=== PATIENT | female | born 1945 | race Hispanic/Latino ===

== ENCOUNTER 2022-01-26 16:33 | Inpatient (IN) | payer OTHER ==
--- OUTSIDE RECORDS SUMMARY | 2022-01-26 16:36 | XMS REPORT | Continuity of Care Document ---
:1945 Author Organization [facility] t Address [address] [place] [address] Care Team Providers Name Role Phone Enzo Knight Primary Care Physician Unavailable ANENE Attending Clinician Unavailable Vaccine, Db Cbc Fam Attending Clinician Unavailable Anene TENANT RELATIONS COORDINATOR Attending Clinician RADIOLOGY Attending Clinician Unavailable Radiology Attending Clinician Unavailable Doctor Unassigned, Name Attending Clinician Unavailable Pob, Lab Main Attending Clinician Unavailable Paige YEPEZ Attending Clinician PAIGE Attending Clinician Unavailable Payers Payer Name Policy Type Policy Number Effective Date Expiration Date S elo [employer] MEDICARE [id number] 2018 00:00:00 Problems This patient has no known problems. Allergies, Adverse Reactions, Alerts Allergy Allergy Status Severity Reaction(s) Onset Inactive Treating Comm ents Source Name Type Date Date Clinician NO KNOWN Drug Active Univers ALLERGIE Class ity of S [facility] Social History Social Habit Start Date Stop Date Quantity Comments Source Exposure to Not sure [facility] SARS-CoV-2 (event) Medica l Branch Sex Assigned At [birth year] [facility] 00:00:00 00:00:00 [facility] Smoking Status Start Date Stop Date Source Unknown if ever smoked [facility] Medications This patient has no known medications. Immunizations Ordered Filled Immunization Date Status Comments [facility] e Immunization Name Name SARS-COV-2 COVID-19 2021-08-23 Completed Unive rsity of PFIZER VACCINE 00:00:[address] [facility] SARS-COV-2 COVID-19 2020-12-15 Completed Unive rsity of PFIZER VACCINE 00:00:[address] [facility] SARS-COV-2 COVID-19 2020-11-24 Completed Unive rsity of PFIZER VACCINE 00:00:[address] [facility] Zoster Vaccine 2019-05-13 Completed [facility] 00:00:00 [facility] Procedures Procedure Date / Time Performing Clinician Source Performed SARS-COV-2 COVID-19 2021-08-23 16:22:52 Doctor Unassigned, No [facility] [place] VACCINE,0.3ML,IM Name [facility] (PFIZER) BI SCREENING 2020-05-07 20:05:00 Requisition, Paper [facility] TOMOSYNTHESIS BILATERAL [facility] ASSIGNMENT OF BENEFITS 2020-05-07 19:00:07 Doctor Unassigned, No [facility] Name [facility] XR CHEST 2 VW 2020-05-01 16:28:25 Rohan, [facility] Encounters Start End Encounter Admission Attending Care Care Encounter Source Date/Time Date/Time Type Type Clinicians Facility Department ID 2021-08-23 2021-08-23 Outpatient R PARAS [facility] [id number] Univers 10:00:00 10:30:47 ROSAURA [facility] 2021-08-23 2021-08-23 Imm/Inj Vaccine, Ang Db Cbc Fam [facility] [id number] Univers 10:08:36 10:18:36 Visit Rosaura Lemos [facility] [id number] ity [facility] [id number] Daniel as SUDHA?BLEA [id number] La jay MEZA [address] [place] [address] MEDICAL OFFICE BUILDING 2021-08-23 2021-08-23 Outpatient R [facility] [id number] Univers 10:00:00 10:00:00 [id number] ity of [facility] 2020-06-16 2020-06-16 Outpatient [facility] [id number] Univers 11:00:00 11:00:00 [id number] ity of [facility] 2020-06-16 2020-06-16 Outpatient R RADIOLOGY [facility] [id number] Univers 00:00:00 00:00:00 ity of [facility] 2020-05-07 2020-05-07 Hospital Radiology [facility] [id number] Univers 14:01:29 23:59:00 Encounter [place] [id number] [id number] [id number] [facility] [address] Branch 2020-05-07 2020-05-07 Outpatient [facility] [id number] Univers 14:20:00 14:20:00 [id number] ity of [facility] 2020-05-07 2020-05-07 Outpatient R RADIOLOGY [facility] [id number] Univers 00:00:00 00:00:00 ity of [facility] 2020-05-07 2020-05-07 Orders Doctor VASYL [id number] Univers 00:00:00 00:00:00 Only Unassigned, EDNA [id number] ity of [place] [facility] [id number] Daniel as [id number] [facility] 009 Branch 2020-05-01 2020-05-01 Hospital Radiology [facility] [id number] Univers 11:01:36 23:59:00 Encounter [place] [id number] [id number] [id number] [facility] 807 Branch 2020-05-01 2020-05-01 Outpatient R RADIOLOGY [facility] [id number] Univers 11:15:00 11:15:00 ity of [facility] 2020-05-01 2020-05-01 Application Development Specialist Nila, Dilshad Lab Main [facility] [id number] Univers 10:57:13 11:12:13 Visit Tracey Gibson [id number] [id number] [id number] La dical nal [address] Branch Building 2020-05-01 2020-05-01 Outpatient R TRACEY GIBSON [facility] [id number] Univers 11:00:00 11:00:00 ity of [facility] Results Test Description Test Time Test Comments Results Result Sourc e Comments BI SCREENING 2020-04-25 Examination:BI Universi ty of TOMOSYNTHESIS 3 SCREENING [place] [facility] BILATERAL 20:45:15 TOMOSYNTHESIS Branch BILATERAL History:Patient is 74 year old and is seen for: ?Encounter for screening mammogram for breast cancer. Computer-aided detection (CAD) utilized. Comparisons: 02/22/2018 BI SCREENING TOMOSYNTHESIS BILATERAL, 12/05/2016 BI SCREENING MAMMOGRAM BILATERAL, 11/23/2015 BI SCREENING MAMMOGRAM BILATERAL, 11/21/2014 BI SCREENING MAMMOGRAM BILATERAL, and 11/18/2013 BI SCREENING MAMMOGRAM BILATERAL Findings:The breasts are almost entirely fatty. RightThere is a 5 mm equal density, round mass with circumscribed margins seen in the upper outer quadrant of the right breast in the posterior depth, 8.3 cm from the nipple on the CC view. LeftThere are vascular calcifications seen in the left breast. There is no evidence of suspicious masses, calcifications, or other abnormal findings in the left breast. Impression:5 mm new lesion in upper outer RIGHT breast, appears benign. Ultrasound study requested. Recommendation:Fawn al mammographic follow-up - LeftUltrasound - Right BI-RADS Category: Left: 2 - BenignRight: 0 - Incomplete: Needs Additional Imaging EvaluationOverall: 0 - Incomplete: Needs Additional Imaging Evaluation XR CHEST 2 VW EXAM: XR CHEST 2 VW Un iversity of 7 HISTORY: [facility] [place] [facility] 16:30:08 hypertension, Branch malignant COMPARISON: None. FINDINGS: The heart is upper limit of normal in size with a prominent left ventricle.The lungs are clear. ? Kymb, Radiant Results Inft User - 05/01/2020 11:31 AM CDTEXAM: XR CHEST 2 VWHISTORY: Essential hypertension, malignant COMPARISON: None.FINDINGS:The heart is upper limit of normal in size with a prominent left ventricle.The lungs are clear.
[2022-01-26 17:18] LABS: Urine Blood 2+ (Negative); Urine Glucose 2+ (Negative); Urine Protein 1+ (Negative); Urine Specific Gravity 1.015 (1.005-1.030)
[2022-01-26] MEDS ORDERED: MORPHINE 2 MG/ML SYR ONE (17:31)
[2022-01-26] MEDS ORDERED: ONDANSETRON 4 MG/2 ML VIAL ONE ×2 (17:31→20:07)
[2022-01-26] MEDS ORDERED: NA CHLORIDE 0.9% 1,000 ML ONE ×2 (17:31→21:23)
[2022-01-26 17:36] LABS: Urine Bacteria 20-50 /HPF (<20)
[2022-01-26] MEDS ORDERED: CEFTRIAXONE 1000 MG/VIAL ONE (17:40)
[2022-01-26 17:42] LABS: Absolute Lymphocytes (CBC) 0.6 K/uL (0.7-4.9); Hematocrit 40.6 % (36.0-45.0); Lymphocytes % 3.3 % (15.3-44.8); MPV 8.3 fL (7.6-11.3); RBC Red Blood Cell Count 5.49 M/uL (3.86-4.86)
[2022-01-26 17:55] LABS: Albumin 3.8 g/dL (3.4-5.0); Bilirubin Total 0.6 mg/dL (0.2-1.0); Potassium 3.7 mmol/L (3.5-5.1); Protein, Total 8.2 g/dL (6.4-8.2)
[2022-01-26 18:28] LABS: Blood Morphology Comment NOT SEEN (NOT SEEN); Platelet Estimate ADEQ; White Blood Cell Scan OK (OK)
--- NOTE | 2022-01-26 19:04 | RAD REPORT ---
EXAM DESCRIPTION: RAD - Chest Single View - 01/26/2022 6:43 pm CLINICAL HISTORY: weakness COMPARISON: Chest Pa And Lat (2 Views) dated 10/23/2017; CHEST PA AND LAT 2 VIEW dated 10/05/2015 FINDINGS: Lines: None. Lungs: No evidence of edema or pneumonia. Pleural: No significant pleural effusions or pneumothorax. Cardiac: The heart size is within normal limits. Bones: No acute fractures. Other: IMPRESSION: No acute cardiopulmonary disease.
--- NOTE | 2022-01-26 19:08 | RAD REPORT ---
EXAM DESCRIPTION: CTStone Protocol - 01/26/2022 6:57 pm CLINICAL HISTORY: r/o renal stone COMPARISON: No comparisons TECHNIQUE: CT of the abdomen and pelvis was performed. All CT scans are performed using dose optimization technique as appropriate and may include automated exposure control or mA/KV adjustment according to patient size. FINDINGS: Lower chest: The phase of the ascending thoracic aorta. Aortic valve calcifications. Liver: No acute abnormality or suspicious lesions. Biliary: Cholecystectomy extrahepatic biliary ductal dilatation is nonspecific and may be related to the postcholecystectomy state. Stomach: No significant focal abnormality. Duodenum: No significant focal abnormality. Pancreas: No significant abnormality. Spleen: No significant abnormality. Adrenal: No suspicious lesions. Kidney/ureter: Moderate left-sided hydronephrosis secondary to a 15 mm stone at the left UPJ. [address] one lower pole left kidney. 5 mm stone in the lower pole the right kidney. Retroperitoneum: No retroperitoneal adenopathy. Vascular: No aneurysm. Bowel: Diverticulosis without evidence of acute diverticulitis. Normal appendix.. Peritoneum: No ascites or free air. Bladder: Grossly unremarkable. Reproductive: No adnexal masses. Bones: No acute fracture. Multilevel degenerative changes are present in the spine. Other: n/a IMPRESSION: Moderate left-sided hydronephrosis secondary to a 15 mm stone at the left UPJ.
--- NOTE | 2022-01-26 19:50 | EDPHYS ---
Physician Documentation [facility] Name: Esperanza Horn Age: 76 yrs Sex: Female : 1945 Arrival Date: 01/26/2022 Time: 16:40 Bed 20 Private MD: Melvina Knight ED Physician Tomás Cheek HPI: 01/26 18:10 This 76 yrs old Female presents to ER via Ambulatory with complaints of Flank jh7 Pain, chills,shaky. 18:10 The patient complains of pain in the low back area. Location: anterior aspect of left jh7 lateral abdomen. Onset: The symptoms/episode began/occurred 5 day(s) ago. Associated signs and symptoms: Pertinent positives: dysuria, urinary frequency. Severity of pain: At its worst the pain was moderate today. The patient reports urinary frequency with dysuria starting 5 days ago. She stated that she took an pill [id number] that was supposed to stop the urinary frequency, but now her pain is worse, and she has developed left side pain. History of UTI 2 to 3 months ago.. Historical: - Allergies: 16:58 No Known Allergies; jl7 - PMHx: 16:58 Diabetes mellitus; Hypertensive disorder; Hypothyroidism; jl7 - Immunization history:: Client reports receiving the 2nd dose of the Covid vaccine. - Social history:: Smoking status: Patient denies any tobacco usage or history of. ROS: 18:17 Constitutional: Negative for fever, chills, and weight loss, Cardiovascular: Negative jh7 for chest pain, palpitations, and edema, Respiratory: Negative for shortness of breath, cough, wheezing, and pleuritic chest pain, MS/Extremity: Negative for injury and deformity, Skin: Negative for injury, rash, and discoloration, Neuro: Negative for headache, weakness, numbness, tingling, and seizure. 18:17 Abdomen/GI: Positive for abdominal pain, Negative for nausea, vomiting, and diarrhea, constipation, rectal bleeding. 18:17 : Positive for urinary symptoms, flank pain, urinary frequency, burning with urination. Exam: 18:17 Constitutional: This is a well developed, well nourished patient who is awake, alert, jh7 and in no acute distress. Head/Face: Normocephalic, atraumatic. ENT: Oropharynx with no redness, swelling, or masses, exudates, or evidence of obstruction, uvula midline. Mucous membranes moist. Cardiovascular: Regular rate and rhythm with a normal S1 and S2. No gallops, murmurs, or rubs. Normal PMI, no JVD. No pulse deficits. Respiratory: Lungs have equal breath sounds bilaterally, clear to auscultation and percussion. No rales, rhonchi or wheezes noted. No increased work of breathing, no retractions or nasal flaring. Skin: Warm, dry with normal turgor. Normal color with no rashes, no lesions, and no evidence of cellulitis. Neuro: Awake and alert, GCS 15, oriented to person, place, time, and situation. 18:17 Abdomen/GI: Inspection: abdomen appears normal, Bowel sounds: normal, Palpation: soft, mild abdominal tenderness, in the left lower quadrant. 18:17 : CVA tenderness, on the left. Vital Signs: 16:54 BP 160 / 74; Pulse 122; Resp 20; Temp 99.4; Pulse Ox 95% on R/A; Weight 92.99 kg; 7 Height 5 ft. 5 in. (165.10 cm); Pain 10/10; 18:00 BP 148 / 106; Pulse 102; Resp 16; Pulse Ox 100% ; bp 19:25 BP 114 / 63; Pulse 112; Resp 22; Temp 100.1; Pulse Ox 99% on 2 lpm NC; Pain 0/10; kelsie 16:54 Body Mass Index 34.11 (92.99 kg, 165.10 cm) [facility] MDM: 16:48 Patient medically screened. [facility] 19:57 Differential diagnosis: nephrolithiasis, Sepsis. Data reviewed: vital signs, nurses [facility] notes. Data interpreted: Pulse oximetry: on room air. Test interpretation: by ED physician or midlevel provider: CT scan. Test interpretation: by ED physician or midlevel provider: plain radiologic studies. Counseling: I had a detailed discussion with the patient and/or guardian regarding: the historical points, exam findings, and any diagnostic results supporting the discharge/admit diagnosis, the need for further work-up and treatment in the hospital. Physician consultation: Johnathon Toledo MD. Physician consultation: was called at 19:15, was contacted at 19:15, regarding admission, to the operating room, consult, patient's condition, and will see patient in OR, would like admission per Dr. Ra Britton. ED course: The patient remained stable throughout her ER visit. Her clinical presentation, labs, and imaging were consistent with sepsis and obstructing renal stone. Dr. Toledo was consulted to see if he would be able to see the patient tonight due to need for immediate intervention due to sepsis. Dr. Toledo ordered to call in the OR team and stated that he would place a stent tonight. He stated that he would like the patient admitted to medicine and to put him as a consult. Discussed case with hospitalist NAOMI Fuller, who would also be seeing the patient.. 01/26 16:51 Order name: Urine Culture 01/26 16:51 Order name: Urine Microscopic Only; Complete Time: 17:55 01/26 17:05 Order name: CBC with Diff; Complete Time: 18:29 [facility] 01/26 17:05 Order name: CMP; Complete Time: 17:55 [facility] 01/26 17:18 Order name: Urine Dipstick-Ancillary; Complete Time: 17:21 [facility] 01/26 18:01 Order name: Lactate; Complete Time: 19:13 [facility] 01/26 18:01 Order name: Blood Culture Adult (2) [facility] 01/26 18:06 Order name: COVID-19 SARS RT PCR (Document "Date of Onset" if Symptomatic); Complete [facility] Time: 20:11 01/26 18:28 Order name: CBC Smear Scan; Complete Time: 18:29 [facility] 01/26 18:32 Order name: CT Stone Protocol [facility] 01/26 18:36 Order name: Stone Protocol; Complete Time: 19:13 [facility] 01/26 18:44 Order name: Chest Single View; Complete Time: 19:13 [facility] 01/26 16:51 Order name: Urine Dipstick-Ancillary (obtain specimen); Complete Time: 17:19 01/26 17:05 Order name: IV Saline Lock; Complete Time: 17:31 [facility] 01/26 17:05 Order name: Labs collected and sent; Complete Time: 17:31 [facility] 01/26 18:40 Order name: Labs - recollect needed: recollect 1 set of blood cultures; Complete Time: bd 18:58 Administered Medications: 17:10 Drug: NS 0.9% 1000 ml Route: IV; Rate: 1 bolus; Site: right antecubital; bp 17:10 Drug: Zofran (Ondansetron) 4 mg Route: IVP; Site: right antecubital; bp 17:10 Drug: morphine 2 mg Route: IVP; Site: right antecubital; bp 18:58 Follow up: Response: No adverse reaction; Pain is decreased bp 17:30 Drug: Rocephin (cefTRIAXone) 1 grams Route: IV; Rate: 1 calculated rate; Site: right bp antecubital; 20:04 Drug: NS 0.9% 1000 ml Route: IV; Rate: 1 bolus; Site: right antecubital; kelsie Disposition Summary: 01/26/22 19:49 Hospitalization Ordered Hospitalization Status: Inpatient Admission [facility] Provider: Ra Britton [facility] Location: Telemetry/MedSurg (Inpatient) [facility] Condition: Stable [facility] Problem: new [facility] Symptoms: are unchanged [facility] Bed/Room Type: Standard [facility] Room Assignment: [facility] Diagnosis - Sepsis, unspecified organism [facility] - Hydronephrosis with renal and ureteral calculous obstruction [facility] Forms: - Medication Reconciliation Form [facility] - SBAR form [facility] Addendum: 01/31/2022 19:02 Co-signature as Attending Physician, Tomás Cheek MD. r n Signatures: Dispatcher [employer] EDMS Carol Lopez Roman, MD MD rn Leal, Jahala RN RN louie7 Paulie Joe RN Yael Blackmon RN RN bo Brown, Sophia, PA PA sb3 Ya Cervantes, PIPE LINER PIPE LINER [facility] Corrections: (The following items were deleted from the chart) 01/26 18:19 18:17 Abdomen/GI: Positive for abdominal pain, Negative for nausea, vomiting, and jh7 diarrhea, constipation, rectal bleeding, [facility] 18:19 18:17 Constitutional: Negative for fever, chills, and weight loss, Cardiovascular: [facility] Negative for chest pain, palpitations, and edema, Respiratory: Negative for shortness of breath, cough, wheezing, and pleuritic chest pain, MS/Extremity: Negative for injury and deformity, Skin: Negative for injury, rash, and discoloration, Neuro: Negative for headache, weakness, numbness, tingling, and seizure, jh7 18:44 18:11 Ankle Left 2 View+RAD.RAD.BRZ ordered. EDMS EDMS :44 18:37 Chest Pa And Lat (2 Views)+RAD.RAD.BRZ ordered. EDMS EDMS
--- NOTE | 2022-01-26 19:50 | ER ---
Nurse's Notes [facility] Name: Esperanza Horn Age: 76 yrs Sex: Female : 1945 Arrival Date: 01/26/2022 Time: 16:40 Bed 20 Private MD: Melvina Knight Diagnosis: Sepsis, unspecified organism;Hydronephrosis with renal and ureteral calculous obstruction Presentation: 01/26 16:54 Chief complaint: Patient states: Left side pain since 1000 this morning, denies urinary jl7 symptoms, denies trauma, denies N/V/D. Coronavirus screen: At this time, the client does not indicate any symptoms associated with coronavirus-19. Ebola Screen: No symptoms or risks identified at this time. Initial Sepsis Screen: Does the patient meet any 2 criteria? No. Patient's initial sepsis screen is negative. Does the patient have a suspected source of infection? No. Patient's initial sepsis screen is negative. Risk Assessment: Do you want to hurt yourself or someone else? Patient reports no desire to harm self or others. Onset of symptoms was January 26, 2022 at 10:00. 16:54 Method Of Arrival: Ambulatory jl7 16:54 Acuity: ARPIT 3 jl7 Triage Assessment: 16:58 General: Appears in no apparent distress. uncomfortable, Behavior is calm, cooperative, jl7 appropriate for age. Pain: Complains of pain in anterior aspect of left lateral abdomen Pain currently is 10 out of 10 on a pain scale. Historical: - Allergies: 16:58 No Known Allergies; jl7 - PMHx: 16:58 Diabetes mellitus; Hypertensive disorder; Hypothyroidism; jl7 - Immunization history:: Client reports receiving the 2nd dose of the Covid vaccine. - Social history:: Smoking status: Patient denies any tobacco usage or history of. Screenin:10 Abuse screen: Denies threats or abuse. Denies injuries from another. Nutritional bp screening: No deficits noted. Tuberculosis screening: No symptoms or risk factors identified. Fall Risk None identified. Assessment: 17:00 General: SEE TRIAGE NOTE. bp 18:44 Reassessment: PT TO CT. bp 19:58 Reassessment: Per the charge nurse, they are coming to get the pt and take her for a kelsie lithotripsy. Pt and daughter informed. 20:05 Reassessment: Per the provider's report, the pt is Covid +. The OR nurse is here to kelsie last picker the pt, via the stretcher and she has a bed on the floor for after the procedure. Vital Signs: 16:54 BP 160 / 74; Pulse 122; Resp 20; Temp 99.4; Pulse Ox 95% on R/A; Weight 92.99 kg; jl7 Height 5 ft. 5 in. (165.10 cm); Pain 10/10; 18:00 BP 148 / 106; Pulse 102; Resp 16; Pulse Ox 100% ; bp 19:25 BP 114 / 63; Pulse 112; Resp 22; Temp 100.1; Pulse Ox 99% on 2 lpm NC; Pain 0/10; kelsie 16:54 Body Mass Index 34.11 (92.99 kg, 165.10 cm) jl7 ED Course: 16:40 Patient arrived in ED. am2 16:40 Melvina Knight is Private Physician. am2 16:48 Ya [facility]ervantes [facility]. jh7 16:48 Tomás Cheek MD is Attending Physician. jh7 16:54 Paulie Joe, ANKIT is Primary Nurse. bp 16:57 Triage completed. jl7 16:58 Arm band placed on right wrist. jl7 17:18 Urine Culture Sent. mb7 17:18 Urine Microscopic Only Sent. mb7 17:34 Inserted saline lock: 20 gauge in right antecubital area, using aseptic technique. mb7 Blood collected. 17:35 CBC with Diff Sent. mb7 17:35 CMP Sent. mb7 17:35 Urine Culture Sent. mb7 17:35 Urine Microscopic Only Sent. mb7 18:18 Bed in low position. Call light in reach. Side rails up X 1. Door closed. Noise mb7 minimized. Warm blanket given. 18:35 Blood Culture Adult (2) Sent. mb7 18:35 Lactate Sent. mb7 18:44 Chest Single View In Process Unspecified. EDMS 18:59 Stone Protocol In Process Unspecified. EDMS 19:18 Primary Nurse role handed off by Paulie Joe, RN mw2 19:25 Yael Tilley, RN is Primary Nurse. kelsie 19:47 Ra Britton is Hospitalizing Provider. 7 20:06 No provider procedures requiring assistance completed. kelsie Administered Medications: 17:10 Drug: NS 0.9% 1000 ml Route: IV; Rate: 1 bolus; Site: right antecubital; bp 17:10 Drug: Zofran (Ondansetron) 4 mg Route: IVP; Site: right antecubital; bp 17:10 Drug: morphine 2 mg Route: IVP; Site: right antecubital; bp 18:58 Follow up: Response: No adverse reaction; Pain is decreased bp 17:30 Drug: Rocephin (cefTRIAXone) 1 grams Route: IV; Rate: 1 calculated rate; Site: right bp antecubital; 20:04 Drug: NS 0.9% 1000 ml Route: IV; Rate: 1 bolus; Site: right antecubital; kelsie Outcome: 19:49 Decision to Hospitalize by Provider. 7 20:07 Condition: stable kelsie 20:07 Admitted to OR accompanied by nurse, via stretcher. kelsie 20:20 Patient left the ED. kelsie Signatures: Dispatcher [employer] EDMS Edwar Gongora RN RN jl7 Esther Hidalgo amPaulie Aleman RN RN Vania Sesay mw2 Jaky Shultz mb7 Yael Tilley RN RN kelsie Ya Cervantes, ELECTRONICS DESIGN ENGINEER ELECTRONICS DESIGN ENGINEER 7 Corrections: (The following items were deleted from the chart) 18:46 18:30 BP 116 / 66; Pulse 58bpm; Resp 16bpm; Pulse Ox 99%; bp bp 18:47 18:00 BP 160 / 74; Pulse 102bpm; Resp 16bpm; Pulse Ox 100%; bp bp
[2022-01-26] MEDS ORDERED: propofoL 200 MG/20 ML VIAL IV ONE (20:05)
[2022-01-26] MEDS ORDERED: MIDAZOLAM HCL 2 MG/2 ML INJ ONE (20:06)
[2022-01-26] MEDS ORDERED: LIDOCAINE 1% MPF 5 ML VIAL ONE (20:06)
[2022-01-26] MEDS ORDERED: FENTANYL CITR 100 MCG/2 ML ONE (20:06)
[2022-01-26] MEDS ORDERED: KETOROLAC 30 MG/ML INJ ONE (20:07)
[2022-01-26] MEDS ORDERED: dexAMETHasone 10 MG/ML VIAL ONE (20:07)
--- NOTE | 2022-01-26 20:18 | P.HP ---
Certification for Inpatient Patient admitted to: Inpatient With expected LOS: <2 Midnights Patient will require the following post-hospital care: None Practitioner: I am a practitioner with admitting privileges, knowledge of patient current condition, hospital course, and medical plan of care. Services: Services provided to patient in accordance with Admission requirements found in Title 42 Section 412.3 of the Code of Federal Regulations Patient History Date of Service: 01/26/22 Reason for admission: Nephrolithiasis, Hydronephrosis, Sepsis History of Present Illness: Patient is a 76-year-old female with past medical history of HTN, hypothyroidism, and NIDDM who presented to the ED with complaints of left-sided flank pain that began this morning. She states she began having urinary frequency and dysuria about 5 days ago and has been taking OTC medications. Work-up in the ED revealed UTI, WBC 17.5, lactic acid 3.2. CT stone protocol showed moderate left-sided hydronephrosis secondary to 15 mm stone at the left UPJ. Urology was contacted and agreed to consult and place stent in the OR tonight. She was given 2 L normal saline, Zofran, morphine, and Rocephin. Will admit patient to hospitalist service for medical management. Home medications list reviewed: Yes - Past Medical/Surgical History Diabetic: Yes -: Type 2 Diabetes, Non-Insulin Dependent -: Hypertension -: Hypothyroidism Past Surgical History: Patient denies surgical history Psychosocial/ Personal History: Patient lives at home with her - Family History Father -: Stroke Brother -: Diabetes - Social History Smoking Status: Former smoker Alcohol use: No CD- Drugs: No Caffeine use: Yes Place of Residence: Home Review of Systems 10-point ROS is otherwise unremarkable Genitourinary: Dysuria, Frequency, Urgency, As per HPI Physical Examination - Physical Exam General: Alert, In no apparent distress, Oriented x3 HEENT: Atraumatic, PERRLA, Mucous membr. moist/pink, EOMI, Sclerae nonicteric Neck: Supple, 2+ carotid pulse no bruit, No LAD, Without JVD or thyroid abnormality Respiratory: Clear to auscultation bilaterally, Normal air movement Cardiovascular: No edema, Regular rate/rhythm, Normal S1 S2 Gastrointestinal: Normal bowel sounds, Soft and benign, No tenderness Musculoskeletal: No tenderness Integumentary: No rashes Neurological: Normal gait, Normal speech, Normal strength at 5/5 x4 extr, Normal tone, Normal affect - Studies Laboratory Data (last 24 hrs) 01/26/22 17:31: Sodium 137, Potassium 3.7, BUN 17, Creatinine 1.19, Glucose 160 H, Total Bilirubin 0.6, AST 17, ALT 26, Alkaline Phosphatase 90 01/26/22 17:31: WBC 17.5 H, Hgb 13.0, Hct 40.6, Plt Count 271 Assessment and Plan - Problems (Diagnosis) (1) Sepsis Current Visit: Yes Status: Acute Qualifiers: Sepsis type: sepsis due to unspecified organism Sepsis acute organ dysfunction status: without acute organ dysfunction Qualified Code(s): A41.9 - Sepsis, unspecified organism (2) Left nephrolithiasis Current Visit: Yes Status: Acute (3) Hydronephrosis due to obstruction of ureter Current Visit: Yes Status: Acute (4) Type 2 diabetes mellitus Current Visit: Yes Status: Chronic Qualifiers: Diabetes mellitus chcf insulin use: without intermodal truck driver use Diabetes mellitus complication status: with kidney complications Diabetes mellitus complication detail: with chronic kidney disease Chronic kidney disease stage 3 subtype: stage 3b (GFR 30-44) (5) Hypertension Current Visit: No Status: Chronic Qualifiers: Hypertension type: primary hypertension Qualified Code(s): I10 - Essential (primary) hypertension (6) Hypothyroidism Current Visit: No Status: Chronic Qualifiers: Hypothyroidism type: acquired Qualified Code(s): E03.9 - Hypothyroidism, unspecified - Plan -Urology to place stent in the OR tonight -Sepsis: WBC elevated at 17.5, lactic acid 3.2, febrile 100.1. Given 2 L fluids in the ED and Rocephin. Urine culture and blood culture sent. -Monitor on telemetry -Antibiotics based on Dr. Toledo recommendation -Morphine as needed pain, Zofran as needed nausea, Tylenol as needed fever -Resume diabetic diet in the morning. ACHS Accu-Cheks with mild sliding scale insulin -Monitor and replete electrolytes as necessary -Reconcile and continue home medication -Lovenox for VTE prophylaxis Discharge Plan: Home Plan to discharge in: 48 Hours - Advance Directives Does patient have a Living Will: No Does patient have a Durable POA for Healthcare: No - Code Status/Comfort Care Code Status Assessed: Yes (Full) Critical Care: No Time Spent Managing Pts Care (In Minutes): 70
[2022-01-26] MEDS: NA CHLORIDE 0.9% 1,000 ML ONE ×2 (20:20→20:43)
[2022-01-26] MEDS ORDERED: Phenylephrine HCl 10 MG/ML 1 ML VIAL ONE (21:06)
--- NOTE | 2022-01-26 21:18 | RAD REPORT ---
EXAM DESCRIPTION: RAD - Urethrocystogrphy Retrograde - 01/26/2022 9:12 pm CLINICAL HISTORY: STENT PLACEMENT COMPARISON: Stone Protocol dated 01/26/2022 FINDINGS/IMPRESSION: Nine intraoperative fluoroscopic images were submitted showing cannulation of t he left ureter, injection of contrast, and placement of a ureteral stent. Left UPJ stone again noted. Fluoro time: 11 seconds
[2022-01-26] MEDS ORDERED: ALBUMIN HUM 5% 250 ML IV ONE (21:20)
[2022-01-26] MEDS: INSULIN -REGULAR HUMAN 50 UNIT/0.5 ML ML SQ SCH (21:26)
[2022-01-26] MEDS ORDERED: ONDANSETRON 4 MG/2 ML VIAL IV PRN (21:26)
[2022-01-26] MEDS ORDERED: NA CHLORIDE 0.9% 100 ML ONE (21:27)
[2022-01-26] MEDS ORDERED: CEFEPIME 1 GM/VIAL ONE (21:27)
--- NOTE | 2022-01-26 21:38 | P.PN ---
Date of Service: 01/26/22 Was notified by urology that patient is out of surgery and has been hypotensive and tachycardic and are transferring to ICU. They have been pushing fluids and gave albumin x1. Recommended dopamine if necessary. Patient moving towards severe sepsis/septic shock. Dr. Toledo stated that if patient improves overnight, her Bermudez can be removed in the morning. Advised cefepime x 14 days and follow up with him outpatient.
[2022-01-26] MEDS: NA CHLORIDE 0.9% 1,000 ML IV SCH (22:21)
--- NOTE | 2022-01-26 22:37 | P.INFCA ---
Sepsis Focused Assessment - Focused Assessment Complete? Sepsis Focused Assessment Completed?: Yes - Sepsis Screen Result Severe Sepsis: Positive Septic Shock: Negative - Evaluation Current stage of sepsis: Severe sepsis - Vital Signs Reviewed: Yes Temperature: 100.1 F Heart rate: 88 Blood Pressure: 79/52 Respiratory Rate: 20 O2 Sat by Pulse Oximetry: 96 - Examination Date exam was performed: 01/26/22 Time exam was performed: 22:10 Heart: Regular rate/rhythm Lungs: Clear bilaterally Peripheral pulses: 2+ Slightly diminished Peripheral pulse location: Radial Capillary refill: <2 Seconds Skin examination: Normal turgor
--- NOTE | 2022-01-26 22:43 | P.PN ---
Date of Service: 01/26/228: Was notified by urology that patient is out of surgery and has been hypotensive and tachycardic and are transferring to ICU. They have been pushing fluids and gave albumin x1. Recommended dopamine if necessary. Patient moving towards severe sepsis/septic shock. Dr. Toledo stated that if patient improves overnight, her Bermudez can be removed in the morning. Advised cefepime x 14 days and follow up with him outpatient. 2210: assessed patient- she is alert and answering questions appropriately. She reports that her pain has resolved. currently getting her 3rd bag of fluid. will reassess BP when finished and start dopamine if necessary.
[2022-01-26] MEDS ORDERED: DOPAMINE/D5W 400 MG/250 ML BAG IV SCH (23:45)
[2022-01-27] MEDS ORDERED: PIPER TAZO 3.375 GM in NA CHLORIDE 0.9% 100 ML IV SCH (01:00)
[2022-01-27] MEDS: MORPHINE 2 MG/ML SYR IV PRN ×2 (03:53→09:10)
[2022-01-27 04:51] LABS: Absolute Lymphocytes (CBC) 0.5 K/uL (0.7-4.9); Hematocrit 35.4 % (36.0-45.0); Lymphocytes % 1.6 % (15.3-44.8); MPV 8.5 fL (7.6-11.3); RBC Red Blood Cell Count 4.65 M/uL (3.86-4.86)
[2022-01-27 05:18] LABS: Blood Morphology Comment NOT SEEN (NOT SEEN); Platelet Estimate ADEQ
[2022-01-27 05:21] LABS: Magnesium 1.9 mg/dL (1.8-2.4); Phosphorus 3.9 mg/dL (2.5-4.9); Potassium 3.7 mmol/L (3.5-5.1); Thyroid Stimulating Hormone 0.609 uIU/mL (0.360-3.740)
[2022-01-27] MEDS: ACETAMINOPHEN 500 MG TAB PO PRN (05:21)
[2022-01-27] MEDS: NA CHLORIDE 0.9% 1,000 ML IV SCH ×2 (06:43→17:33)
[2022-01-27] MEDS: INSULIN -REGULAR HUMAN 50 UNIT/0.5 ML ML SQ SCH ×4 (07:30→21:00)
[2022-01-27] MEDS ORDERED: CEFEPIME 1 GM in NA CHLORIDE 0.9% 100 ML IV SCH ×4 (09:00)
[2022-01-27] MEDS: ENOXAPARIN 40 MG/0.4 ML SQ SCH (09:09)
[2022-01-27] MEDS: HYDROCODONE/APAP 5/325 MG TAB PO PRN ×2 (10:53→16:30)
--- NOTE | 2022-01-27 13:32 | OP ---
Surgeon: BLADIMIR ONEIL Preoperative Diagnoses: 1.Left 11 mm ureterolithiasis. 2.Obstructive pyelonephritis. 3.Sepsis converted to septic shock. 4.Bilateral small volume nephrolithiasis. Principal Procedures: 1.Cystoscopy. 2.Left retrograde pyelogram. 3.Left ureteral stent placement. Indication For Procedure: Please see consult note dictated prior to the operative excursion. Procedure In Detail: The patient was consented in the preoperative holding area before being transfe rred to the operative suite where general anesthesia using an LMA was induced. She had previously be en given ceftriaxone IV antimicrobial prophylaxis and pneumo boots were provided for DVT prophylaxis. She was placed supine and then in the lithotomy position, padded and [facility] Her genitalia were prepped using Hibiclens and draped in a standard fashion. The case was beg un using a 22-Latvian rigid cystoscope to traverse the urethra and into the bladder with ease. The bl adder was decompressed of cloudy urine, and the left ureteral orifice was identified. It was then ca nnulated using the tip of a 5-Latvian ureteral access catheter. Left retrograde pyelography: Using a 70:30 mixture of Omnipaque and saline, the contrast mixture was injected via the 5-Latvian ureteral access catheter and did traverse the distal ureter with an obstru cted retrograde flow pattern before surpassing a radiopaque proximal ureteral calculus with associate d mild to moderate ureteral tortuosity before failing to enter the renal pelvis. I thus advanced the 5-Latvian ureteral access catheter further into the mid proximal ureter and again injected more contr ast and observed width of the contrast surpassing the stone and entering the renal pelvis, which was markedly dilated and did not fill. No efforts were made to fill the renal pelvis due to severe sepsi s and the decline in her blood pressure indicating possible progression to septic shock. As a result , I then passed a Sensor wire via the 5-Latvian ureteral access catheter and up the ureter before coil ed in the collecting system. I then removed the 5-Latvian ureteral access catheter and passed over th e Sensor wire a 6-Latvian x 24 cm double-J ureteral stent. A coil was observed fluoroscopically in he r renal pelvis and one was formed and visible cystoscopically within the bladder. I then surveyed th e remainder of the bladder, noting evidence of cystitis throughout, and then placed a 16-Latvian ureth ral Bermudez catheter into her bladder to decompress it. The patient was then taken out of the lithotom y position, awakened from general anesthesia, transferred to a stretcher, and then to the recovery ro om in good condition. Complications: None. Discharge Disposition: She will be admitted and potentially managed within the ICU if persistent hyp otension and tachycardia suggestive of shock occurs, now that the stent has been placed. Antimicrobi al therapy would need to be brought in to cefepime or Zosyn, and we will await the results of culture s hopefully sent in the emergency department. The patient will then ultimately be treated with a 14- day course of antimicrobial therapy before ultimately returning to the operating theater for definiti ve management of the stone via either shockwave lithotripsy or ureteroscopy with laser lithotripsy. SPRING/TAVOL Voice ID: [id number] Report ID: [id number]
--- NOTE | 2022-01-27 13:32 | CON ---
Reason For Consultation: SIRS, suspected sepsis with obstructive ureterolithiasis. History Of Present Illness: Ms. Horn is a 76-year-old woman with no prior history of kidney stones , but history of hypertension and hypothyroidism, who presents with left mid axillary/anterior axilla ry line pain that began around 10:30 this morning. This was associated with some feverishness and ri gors, but no nausea or vomiting. She thus presented to the Emergency Department for evaluation where her white count was identified to be 17.5 associated with normal renal function with a creatinine of 1.19, but an elevated lactate of 3.2. A CT scan was obtained, which I reviewed in detail as follows : Left-sided hydronephrosis noted with a proximal left ureteral 11 mm calculus associated with some perinephric stranding and two additional 2 and 3 mm You's plaques within the left kidney with a 5 mm calculus within the right kidney. Past Medical History: As indicated above. Allergies: NO KNOWN DRUG ALLERGIES. Physical Examination: General: The patient is somewhat ill-appearing, but in mild distress only. She has mild dyspnea obs erved at rest. She is alert, awake, and oriented. Abdomen: Soft and nontender. She had some left CVA tenderness. Laboratory Data: Urine dipstick was suspicious for infection. Assessment And Recommendations: This is a 76-year-old woman with hypertension and hypothyroidism, wh o presents with left obstructive pyelonephritis due to 11 mm ureterolithiasis causing systemic inflam matory response syndrome and suspected sepsis. I recommended immediate operative intervention with a cystoscopy and left-sided ureteral stent placem ent. I counseled the patient on the risks of the procedure to include urethral stricture, ureteral injury, failure to achieve the desired approach, and need for placement of a left percutaneous nephrostomy t ube. Subsequent management of the stone will be planned in the interval. We will give her a bolus of IV fluids for blood pressure lowering suggestive of impending shock. She was given IV Rocephin in the Emergency Department and if shock continues to progress, we may broa den her antimicrobial therapy to either cefepime or Zosyn. She will be admitted post procedure early and depending on her clinical status at that time, she will be determined for floor admission versus ICU. WR/MODL Voice ID: [id number] Report ID: [id number]
--- NOTE | 2022-01-27 13:44 | P.PN ---
Subjective Date of Service: 01/27/22 Chief Complaint: Nephrolithiasis, Hydronephrosis, Sepsis She stated she is feeling much better today. Patient went on dopamine drip. Blood pressure stable. She is complaining of left flank pain. No fever. S/p cystoscopy with left ureteral stent placement last night. Physical Examination - Vital Signs Temperature: 97.8 F Blood Pressure: 130/74 Pulse: 67 Respirations: 23 Pulse Ox (%): 93 - Studies Laboratory Data (last 24 hrs) 01/26/22 17:31: Sodium 137, Potassium 3.7, BUN 17, Creatinine 1.19, Glucose 160 H, Total Bilirubin 0.6, AST 17, ALT 26, Alkaline Phosphatase 90 01/26/22 17:31: WBC 17.5 H, Hgb 13.0, Hct 40.6, Plt Count 271 Assessment And Plan - Current Problems (Diagnosis) (1) Septic shock Current Visit: Yes Status: Acute (2) Hydronephrosis concurrent with and due to calculi of kidney and ureter Current Visit: Yes Status: Acute (3) Hydronephrosis due to obstruction of ureter Current Visit: Yes Status: Acute (4) Left nephrolithiasis Current Visit: Yes Status: Acute (5) Sepsis Current Visit: Yes Status: Acute Qualifiers: Sepsis type: sepsis due to unspecified organism Sepsis acute organ dysfunction status: without acute organ dysfunction Qualified Code(s): A41.9 - Sepsis, unspecified organism (6) Type 2 diabetes mellitus Current Visit: Yes Status: Chronic Qualifiers: Diabetes mellitus intermediate project manager insulin use: without residential use Diabetes mellitus complication status: with kidney complications Diabetes mellitus complication detail: with chronic kidney disease Chronic kidney disease stage 3 subtype: stage 3b (GFR 30-44) - Plan Physical Exam General: Alert, In no apparent distress, Oriented x3 HEENT: Mucous membr. moist/pink, EOMI, Sclerae nonicteric Neck: Supple, Without JVD. Respiratory: Clear to auscultation bilaterally, Normal air movement Cardiovascular: No edema, Regular rate/rhythm, Normal S1 S2 Gastrointestinal: Normal bowel sounds, Soft and benign, No tenderness Musculoskeletal: Left flank tenderness Integumentary: No rashes Neurological: Normal strength at 5/5 x4 extr, Normal affect. Plan: Leukocytosis is worse today but patient is afebrile and blood pressure stabilized. Patient is off dopamine drip. Continue current antibiotics. Follow urine culture and blood cultures Urology input appreciated DC Bermudez catheter today Diet as tolerated. Transfer to the medical floor. Urology to follow.
[2022-01-27] MEDS: CEFEPIME 1 GM in NA CHLORIDE 0.9% 100 ML IV SCH (21:40)
[2022-01-28] MEDS: HYDROCODONE/APAP 5/325 MG TAB PO PRN ×4 (01:03→21:21)
[2022-01-28] MEDS: NA CHLORIDE 0.9% 1,000 ML IV SCH ×3 (03:26→15:32)
[2022-01-28 05:08] VITALS: BMI 34.1
[2022-01-28 05:11] LABS: Absolute Lymphocytes (CBC) 1.2 K/uL (0.7-4.9); Hematocrit 33.9 % (36.0-45.0); Lymphocytes % 4.4 % (15.3-44.8); MPV 8.8 fL (7.6-11.3)
[2022-01-28 06:04] LABS: Potassium 3.4 mmol/L (3.5-5.1)
[2022-01-28] MEDS: INSULIN -REGULAR HUMAN 50 UNIT/0.5 ML ML SQ SCH ×4 (07:30→21:00)
[2022-01-28] MEDS: ENOXAPARIN 40 MG/0.4 ML SQ SCH (09:04)
[2022-01-28] MEDS: CEFEPIME 1 GM in NA CHLORIDE 0.9% 100 ML IV SCH ×2 (09:05→21:19)
[2022-01-28] MEDS ORDERED: FUROSEMIDE 20 MG/ 2ML VIAL IV ONE (17:58)
--- NOTE | 2022-01-28 18:02 | P.PN ---
Subjective Date of Service: 01/28/22 Chief Complaint: Nephrolithiasis, Hydronephrosis, Sepsis Patient is complaining of cough. Cough is nonproductive. Leukocytosis trended down No fever. She is complaining of persistent left-sided flank pain. Physical Examination - Vital Signs Temperature: 97.6 F Blood Pressure: 131/64 Pulse: 97 Respirations: 16 Pulse Ox (%): 93 Assessment And Plan - Current Problems (Diagnosis) (1) Septic shock Current Visit: Yes Status: Acute (2) Hydronephrosis concurrent with and due to calculi of kidney and ureter Current Visit: Yes Status: Acute (3) Hydronephrosis due to obstruction of ureter Current Visit: Yes Status: Acute (4) Left nephrolithiasis Current Visit: Yes Status: Acute (5) Sepsis Current Visit: Yes Status: Acute Qualifiers: Sepsis type: sepsis due to unspecified organism Sepsis acute organ dysfunction status: without acute organ dysfunction Qualified Code(s): A41.9 - Sepsis, unspecified organism (6) Type 2 diabetes mellitus Current Visit: Yes Status: Chronic Qualifiers: Diabetes mellitus halfway insulin use: without halfway use Diabetes mellitus complication status: with kidney complications Diabetes mellitus complication detail: with chronic kidney disease Chronic kidney disease stage 3 subtype: stage 3b (GFR 30-44) - Plan Physical Exam General: Alert, In no apparent distress. HEENT: Mucous membr. moist/pink, EOMI, Sclerae nonicteric Neck: Supple, Without JVD. Respiratory: Clear to auscultation bilaterally, Normal air movement Cardiovascular: No edema, Regular rate/rhythm, Normal S1 S2 Gastrointestinal: Normal bowel sounds, Soft and benign, No tenderness Integumentary: No rashes Neurological: Normal strength at 5/5 x4 extr, Normal affect. Plan: Now trending down. Blood pressure has been stable. Patient is off dopamine drip. Continue current antibiotics. Urine culture is growing gram-negative rods. Follow urine culture. Blood cultures: No growth to date Urology input appreciated Diet as tolerated. Urology to follow. Repeat chest x-ray given that patient is COVID-positive and complaining of cough. She is also maintained on 2 L oxygen by nasal cannula Antitussives as needed.
[2022-01-28] MEDS: GUAIFENESIN/DM 5 ML UCUP PO PRN (18:13)
--- NOTE | 2022-01-28 18:37 | RAD REPORT ---
[facility]30 [facility] CLINICAL HISTORY: Shortness breath COMPARISON: Jan 26 2022 FINDINGS: A few areas of subsegmental atelectasis are present within the lung bases. Upper lobes ap pear clear. Heart is borderline enlarged
[2022-01-29] MEDS: NA CHLORIDE 0.9% 1,000 ML IV SCH ×3 (01:37→19:26)
[2022-01-29] MEDS: HYDROCODONE/APAP 5/325 MG TAB PO PRN ×4 (05:40→21:07)
[2022-01-29 05:53] LABS: Absolute Lymphocytes (CBC) 1.2 K/uL (0.7-4.9); Hematocrit 32.6 % (36.0-45.0); Lymphocytes % 7.9 % (15.3-44.8); MPV 8.8 fL (7.6-11.3); RBC Red Blood Cell Count 4.33 M/uL (3.86-4.86)
[2022-01-29 06:04] LABS: Magnesium 2.2 mg/dL (1.8-2.4); Potassium 3.4 mmol/L (3.5-5.1)
[2022-01-29] MEDS: INSULIN -REGULAR HUMAN 50 UNIT/0.5 ML ML SQ SCH ×4 (07:30→21:00)
[2022-01-29] MEDS ORDERED: CEFEPIME 1 GM/VIAL ONE (08:24)
[2022-01-29] MEDS ORDERED: NA CHLORIDE 0.9% 100 ML ONE (08:31)
[2022-01-29] MEDS: CEFEPIME 1 GM in NA CHLORIDE 0.9% 100 ML IV SCH ×2 (09:13→21:07)
[2022-01-29] MEDS: ENOXAPARIN 40 MG/0.4 ML SQ SCH (09:13)
--- NOTE | 2022-01-29 13:36 | P.PN ---
Subjective Date of Service: 01/29/22 Chief Complaint: Nephrolithiasis, Hydronephrosis, Sepsis Patient states that shortness of breath is better. She also states the left- sided flank pain has improved. No fever. Leukocytosis significantly improved. Physical Examination - Vital Signs Temperature: 97 F Blood Pressure: 109/57 Pulse: 68 Respirations: 15 Pulse Ox (%): 96 - Studies Microbiology Data (last 24 hrs): 01/26/22 17:16 Clean Catch Urine [place] Count - Final >100,000 CFU/ML. 01/26/22 17:16 Clean Catch Urine - Final Klebsiella Pneumoniae Assessment And Plan - Current Problems (Diagnosis) (1) Septic shock Current Visit: Yes Status: Acute (2) Hydronephrosis concurrent with and due to calculi of kidney and ureter Current Visit: Yes Status: Acute (3) Hydronephrosis due to obstruction of ureter Current Visit: Yes Status: Acute (4) Left nephrolithiasis Current Visit: Yes Status: Acute (5) Sepsis Current Visit: Yes Status: Acute Qualifiers: Sepsis type: sepsis due to unspecified organism Sepsis acute organ dysfunction status: without acute organ dysfunction Qualified Code(s): A41.9 - Sepsis, unspecified organism (6) Type 2 diabetes mellitus Current Visit: Yes Status: Chronic Qualifiers: Diabetes mellitus cargo operations agent insulin use: without cargo operations agent use Diabetes mellitus complication status: with kidney complications Diabetes mellitus complication detail: with chronic kidney disease Chronic kidney disease stage 3 subtype: stage 3b (GFR 30-44) - Plan Physical Exam General: Alert, In no apparent distress. HEENT: Mucous membr. moist/pink, sclerae nonicteric Neck: Without JVD. Respiratory: Clear to auscultation bilaterally, Normal air movement Cardiovascular: No edema, Regular rate/rhythm, Normal S1 S2 Gastrointestinal: Normal bowel sounds, Soft and benign, No tenderness Integumentary: No rashes Neurological: Normal strength at 5/5 x4 extr, Normal affect. Plan: BP has been stable. Leukocytosis has improved significantly Status post dopamine drip. Urine culture is growing Klebsiella pneumonia resistant to ampicillin otherwise pansensitive.. Blood cultures: No growth to date. Continue IV cefepime. Seen by urology and status post cystoscopy, retrograde pyelogram and ureteral stent placement. Diet as tolerated. Urology to follow. Checked that shows atelectasis, no infiltrate. Incentive spirometry. Wean off oxygen as tolerated. Antitussives as needed.
[2022-01-29] MEDS: GUAIFENESIN/DM 5 ML UCUP PO PRN (21:07)
[2022-01-30] MEDS: NA CHLORIDE 0.9% 1,000 ML IV SCH ×3 (00:40→20:23)
[2022-01-30] MEDS: HYDROCODONE/APAP 5/325 MG TAB PO PRN ×3 (02:28→20:28)
[2022-01-30] MEDS: INSULIN -REGULAR HUMAN 50 UNIT/0.5 ML ML SQ SCH ×4 (07:30→20:18)
[2022-01-30] MEDS: ENOXAPARIN 40 MG/0.4 ML SQ SCH (08:51)
[2022-01-30] MEDS: CEFEPIME 1 GM in NA CHLORIDE 0.9% 100 ML IV SCH ×2 (08:52→20:22)
[2022-01-30] MEDS: GUAIFENESIN/DM 5 ML UCUP PO PRN ×2 (10:37→20:22)
--- NOTE | 2022-01-30 12:18 | P.PN ---
Subjective Date of Service: 01/30/22 Chief Complaint: Nephrolithiasis, Hydronephrosis, Sepsis Patient states she is feeling better. She is maintained on 2 L oxygen by nasal cannula. Seen sitting at the edge of the bed. She states that her left flank pain has improved significantly. No fever. Physical Examination - Vital Signs Temperature: 98.2 F Blood Pressure: 156/70 Pulse: 71 Respirations: 18 Pulse Ox (%): 97 - Studies Microbiology Data (last 24 hrs): 01/26/22 17:16 Clean Catch Urine [place] Count - Final >100,000 CFU/ML. 01/26/22 17:16 Clean Catch Urine - Final Klebsiella Pneumoniae Assessment And Plan - Current Problems (Diagnosis) (1) Septic shock Current Visit: Yes Status: Acute (2) Hydronephrosis concurrent with and due to calculi of kidney and ureter Current Visit: Yes Status: Acute (3) Hydronephrosis due to obstruction of ureter Current Visit: Yes Status: Acute (4) Left nephrolithiasis Current Visit: Yes Status: Acute (5) Sepsis Current Visit: Yes Status: Acute Qualifiers: Sepsis type: sepsis due to unspecified organism Sepsis acute organ dysfunction status: without acute organ dysfunction Qualified Code(s): A41.9 - Sepsis, unspecified organism (6) Type 2 diabetes mellitus Current Visit: Yes Status: Chronic Qualifiers: Diabetes mellitus half-way insulin use: without half-way use Diabetes mellitus complication status: with kidney complications Diabetes mellitus complication detail: with chronic kidney disease Chronic kidney disease stage 3 subtype: stage 3b (GFR 30-44) - Plan Physical Exam General: Alert, In no apparent distress. Neck: Without JVD. Respiratory: Clear to auscultation bilaterally, Normal air movement Cardiovascular: No edema, Regular rate/rhythm, Normal S1 S2 Gastrointestinal: Normal bowel sounds, Soft and benign, No tenderness Integumentary: No rashes Neurological: Normal strength at 5/5 x4 extr, Normal affect. Plan: BP has been stable. Leukocytosis has improved. Status post dopamine drip. Urine culture is growing Klebsiella pneumonia resistant to ampicillin otherwise pansensitive.. Blood cultures: No growth to date. Continue IV cefepime. Seen by urology and status post cystoscopy, retrograde pyelogram and ureteral stent placement. Patient with complicated UTI. Infectious disease consult. Diet as tolerated. Urology to follow. Chest x-ray shows atelectasis, no infiltrate. Incentive spirometry. Wean off oxygen as tolerated. Antitussives as needed.
[2022-01-31] MEDS: NA CHLORIDE 0.9% 1,000 ML IV SCH ×2 (01:26→09:11)
[2022-01-31 03:58] LABS: Absolute Lymphocytes (CBC) 1.4 K/uL (0.7-4.9); Hematocrit 30.8 % (36.0-45.0); Lymphocytes % 13.5 % (15.3-44.8); MPV 8.4 fL (7.6-11.3); RBC Red Blood Cell Count 4.13 M/uL (3.86-4.86)
[2022-01-31 04:11] LABS: BUN Blood Urea Nitrogen 10 mg/dL (7-18); Bicarbonate 28 mmol/L (21-32); Glomerular Filtration Rate > 90 mL/min (=/>90); Glucose Level 113 mg/dL (74-106); Potassium 3.3 mmol/L (3.5-5.1); Sodium Level 137 mmol/L (136-145)
[2022-01-31] MEDS: INSULIN -REGULAR HUMAN 50 UNIT/0.5 ML ML SQ SCH ×3 (07:30→15:57)
[2022-01-31] MEDS: GUAIFENESIN/DM 5 ML UCUP PO PRN (09:10)
[2022-01-31] MEDS: ACETAMINOPHEN 500 MG TAB PO PRN (09:10)
[2022-01-31] MEDS: ENOXAPARIN 40 MG/0.4 ML SQ SCH (09:10)
[2022-01-31] MEDS: CEFEPIME 1 GM in NA CHLORIDE 0.9% 100 ML IV SCH (09:11)
--- NOTE | 2022-01-31 16:36 | P.DS ---
Admission Date: 01/26/22 Discharge Date: 01/31/22 Disposition: [facility] HOME/HOME HEALTH CARE Discharge Condition: FAIR Reason for Admission: Nephrolithiasis, Hydronephrosis, Sepsis - Problems (1) Septic shock Current Visit: Yes Status: Acute (2) Hydronephrosis concurrent with and due to calculi of kidney and ureter Current Visit: Yes Status: Acute (3) Hydronephrosis due to obstruction of ureter Current Visit: Yes Status: Acute (4) Left nephrolithiasis Current Visit: Yes Status: Acute (5) Sepsis Current Visit: Yes Status: Acute Qualifiers: Sepsis type: sepsis due to unspecified organism Sepsis acute organ dysfunction status: without acute organ dysfunction Qualified Code(s): A41.9 - Sepsis, unspecified organism (6) Type 2 diabetes mellitus Current Visit: Yes Status: Chronic Qualifiers: Diabetes mellitus alf insulin use: without therapy teacher use Diabetes mellitus complication status: with kidney complications Diabetes mellitus complication detail: with chronic kidney disease Chronic kidney disease stage 3 subtype: stage 3b (GFR 30-44) Brief History of Present Illness: Patient is a 76-year-old female with past medical history of HTN, hypothyroidism, and NIDDM who presented to the ED with complaints of left-sided flank pain that began this morning. She states she began having urinary frequency and dysuria about 5 days prior and had been taking OTC medications. Work-up in the ED revealed UTI, WBC 17.5, lactic acid 3.2. CT stone protocol showed moderate left-sided hydronephrosis secondary to 15 mm stone at the left UPJ. Urology was contacted and agreed to consult and place stent in the OR tonight. She was given 2 L normal saline, Zofran, morphine, and Rocephin. Patient admitted for further management. Hospital Course: Patient developed hypotension and was admitted to the ICU. She was started on aggressive antibiotic therapy including IV cefepime and vancomycin. Patient seen by neurology who performed emergent cystoscopy with retrograde pyelogram and ureteral stent placement. Patient returned to the ICU where she was continued on aggressive antibiotic therapy, IV fluid resuscitation. Blood cultures yielded no growth. Urine culture grew pansensitive Klebsiella. Bermudez catheter removed and patient voided without difficulty. Dopamine drip was weaned off, as blood pressure stabilized. She severe leukocytosis which improved with antibiotics and then resolved. BP has been stable. Leukocytosis has improved. Patient has responded clinically to treatment, no fever for several days, leukocytosis resolved, she is eating well and ambulating. She is discharged with oral Levaquin to complete at least 14 days of treatment. Patient cleared for discharge per Urology-Dr. Toledo. She will follow with Dr. Toledo as an outpatient to schedule another surgery Patient tested positive for COVID-19. She was initially requiring oxygen but multiple x-rays showed no infiltrate. She is fully vaccinated for COVID-19. She was weaned off oxygen and she tolerated room air. Patient has clinically improved and deemed stable for discharge. Vital Signs/Physical Exam: Temp Pulse Resp BP Pulse Ox 98.5 F 66 18 141/63 H 97 01/31/22 12:00 01/31/22 12:00 01/31/22 12:00 01/31/22 12:00 01/31/22 12:00 General: Alert, In no apparent distress, Oriented x3 HEENT: Mucous membr. moist/pink Neck: JVD not distended Respiratory: Clear to auscultation bilaterally, Normal air movement Cardiovascular: No edema, Regular rate/rhythm, Normal S1 S2 Gastrointestinal: Soft and benign, Non-distended Musculoskeletal: No swelling Integumentary: No rashes, No cyanosis Neurological: Normal speech, Normal strength at 5/5 x4 extr Laboratory Data at Discharge: WBC 10.5 K/uL (4.3-10.9) D 01/31/22 03:18 Hgb 10.0 g/dL (12.0-15.0) L 01/31/22 03:18 Hct 30.8 % (36.0-45.0) L 01/31/22 03:18 Plt Count 220 K/uL (152-406) 01/31/22 03:18 Sodium 137 mmol/L (136-145) 01/31/22 03:18 Potassium 3.3 mmol/L (3.5-5.1) L 01/31/22 03:18 BUN 10 mg/dL (7-18) 01/31/22 03:18 Creatinine 0.57 mg/dL (0.55-1.3) 01/31/22 03:18 Glucose 113 mg/dL (74-106) H 01/31/22 03:18 Phosphorus 3.9 mg/dL (2.5-4.9) 01/27/22 04:36 Magnesium 2.2 mg/dL (1.8-2.4) 01/29/22 05:26 Total Bilirubin 0.6 mg/dL (0.2-1.0) 01/26/22 17:31 AST 17 U/L (15-37) 01/26/22 17:31 ALT 26 U/L (12-78) 01/26/22 17:31 Alkaline Phosphatase 90 U/L (45-117) 01/26/22 17:31 Triglycerides 102 mg/dL (<150) 01/27/22 04:36 Cholesterol 102 mg/dL (<200) 01/27/22 04:36 HDL Cholesterol 59 mg/dL (40-60) 01/27/22 04:36 Cholesterol/HDL Ratio 1.73 01/27/22 04:36 Home Medications: Cholecalciferol (Vitamin D3) [Vitamin D3] 1,000 unit PO DAILY 01/27/22 Docosahexanoic AC/Epa [Fish Oil 1,000 MG*] 1,000 mg PO DAILY 01/27/22 Empagliflozin [Jardiance] 2 tab PO DAILY 01/27/22 Levothyroxine [Synthroid*] 125 mcg PO [id number] 01/27/22 Losartan/Hydrochlorothiazide [Losartan-Hctz 100-12.5 mg Tab] 1 each PO DAILY 01/27/22 Metformin HCl [Glucophage*] 1,000 mg PO BIDWM 01/27/22 Multivit-Min/FA/Lycopen/Lutein [Centrum Silver Tablet] 1 each PO DAILY 01/27/22 Niacin [Niacin ER] 500 mg PO DAILY 01/27/22 Vitamin E 400 unit PO DAILY 01/27/22 Guaif/Dm [Robitussin Dm*] 10 ml PO Q6H PRN #20 ucup 01/31/22 levoFLOXacin [Levaquin] 500 mg PO DAILY #9 tab 01/31/22 New Medications: levoFLOXacin [Levaquin] 500 mg PO DAILY #9 tab Guaif/Dm [Robitussin Dm*] 10 ml PO Q6H PRN #20 ucup PRN Reason: Cough Diet: ADA Activity: Ad luisa Followup: Melvina Posadas PAC [Primary Care Provider] - Johnathon Toledo [ACTIVE - CAN ADMIT] - 1-2 Weeks (Please call the office for appointment.) Time spent managing pt's care (in minutes): 38
[2022-01-31 16:58] VITALS: BP 176/80; TEMP 98.6
[2022-01-31 18:05] VITALS: O2SAT 95
== END 2022-01-31 17:50 | disposition home health service (06) | DRG 853 ==
LOC: ER 16:33 → ERHOLD 20:10 → 3RD-ICU 21:31 → 2ND 01-28 03:45
PROVIDERS: ADMIT Internal Medicine; ATTEND Internal Medicine
PROC: BT1F1ZZ Fluoroscopy of Left Kidney, Ureter and Bladder using Low Osmolar Contrast (ICD-10-PCS; 2022-01-26)
PROC: 0T778DZ Dilation of Left Ureter with Intraluminal Device, Via Natural or Artificial Opening Endoscopic (ICD-10-PCS; principal; 2022-01-26 20:00)
DX: A41.9 Sepsis, unspecified organism (principal); R65.21 Severe sepsis with septic shock; U07.1 COVID-19; N13.6 Pyonephrosis; E03.9 Hypothyroidism, unspecified; I12.9 Hypertensive chronic kidney disease with stage 1 through stage 4 chronic kidney disease, or unspecified chronic kidney disease; E11.22 Type 2 diabetes mellitus with diabetic chronic kidney disease; N18.32 Chronic kidney disease, stage 3b; Z87.891 Personal history of nicotine dependence
CPT/HCPCS: 36415; 51610; 71045; 74176; 74450; 76377; 80048; 80053; 80061; 81003; 81015; 82947; 83605; 83735; 84100; 84439; 84443; 85025; 87040; 87077; 87086; 87088; 87186; 96374; 96375; 99285; J0692; J1100; J1265; J1650; J1940; J2250; J2270; J2370; J2405; J2704; J3010; J7030; P9045; U0003

== ENCOUNTER 2022-03-22 06:25 | Day surgery (SDC) | payer OTHER ==
[2022-03-18 11:37] LABS: Protime INR 1.05
[2022-03-22] MEDS ORDERED: NA CHLORIDE 0.9% 1,000 ML ONE (06:51)
[2022-03-22] MEDS ORDERED: ACETAMINOPHEN 500 MG TAB ONE (06:55)
[2022-03-22] MEDS ORDERED: Gentamicin Inj 180 MG in NA CHLORIDE 0.9% 100 ML IV SCH (07:00)
[2022-03-22] MEDS ORDERED: AMPICILLIN SODIUM 2 GM in NA CHLORIDE 0.9% 100 ML IVPB SCH (07:00)
[2022-03-22] MEDS ORDERED: FENTANYL CITR 100 MCG/2 ML ONE (07:13)
[2022-03-22] MEDS ORDERED: propofoL 200 MG/20 ML VIAL IV ONE (07:13)
[2022-03-22] MEDS ORDERED: LIDOCAINE 1% MPF 5 ML VIAL ONE (07:13)
[2022-03-22] MEDS ORDERED: KETOROLAC 30 MG/ML INJ ONE (07:54)
[2022-03-22] MEDS ORDERED: dexAMETHasone 10 MG/ML VIAL ONE (07:54)
[2022-03-22] MEDS ORDERED: ONDANSETRON 4 MG/2 ML VIAL ONE (07:55)
[2022-03-22] MEDS ORDERED: EPHEDRINE SULF 50 MG/ML VIAL ONE (08:04)
[2022-03-22] MEDS ORDERED: NS 0.9% VIAL 10 ML ONE (08:04)
--- NOTE | 2022-03-22 08:50 | RAD REPORT ---
EXAM DESCRIPTION: RAD - Urethrocystogrphy Retrograde - 03/22/2022 8:44 am FINDINGS: There were 17 portable KUB images acquired during fluoroscopic assisted placement of a lef t ureteral stent. Images show stepwise placement of the stent with no suspicious or unexpected finding. Fluoro time was 0.27 minutes.
[2022-03-22] MEDS ORDERED: HYDROCODONE/APAP 5/325 MG TAB PO PRN (09:01)
[2022-03-22] MEDS ORDERED: PHENAZOPYRIDINE 100MG TAB PO ONE ×2 (09:01→09:49)
[2022-03-22] MEDS ORDERED: HYDROCODONE/APAP 5/325 MG TAB ONE (09:49)
[2022-03-22 10:09] VITALS: BP 134/56; TEMP 97.2; O2SAT 94
--- NOTE | 2022-03-23 06:59 | OP ---
Surgeon: BLADIMIR ONEIL Preoperative Diagnosis: Left 11 mm obstructive proximal ureterolithiasis. Postoperative Diagnosis: Left 11 mm obstructive proximal ureterolithiasis. Principal Procedure: 1.Cystoscopy. 2.Left ureteroscopy with laser lithotripsy. 3.Left pyeloscopy with laser lithotripsy. 4.Left ureteral stent exchange. Indication For Procedure: Ms. Horn presented via the emergency department on 01/26/2022 with SIRS and suspected sepsis with obstructive 11 mm proximal left ureteral stone. She was taken urgently for left ureteral stent placement and then was admitted for several days postoperatively to manage the i nfection. She was subsequently discharged and returns today for definitive management of the stones. Procedure In Detail: The patient was consented in the preoperative holding area, before being transf erred to the operative suite where general anesthesia was induced. She was given ampicillin 2 g and gentamicin 180 mg IV antimicrobial prophylaxis. Pneumo boots were provided for DVT prophylaxis. She was placed supine and then in the lithotomy position, padded and secured to the table appropriately. Her genitalia were prepped using Hibiclens and she was draped in standard fashion. The case was beg un using a 22-[place] rigid cystoscope to traverse the urethra into the bladder with ease. The bladde r was decompressed of fluid and urine, and the left ureteral stent was noted, emanating from the uret eral orifice. I thus grasped the stent using an alligator grasper and delivered it via the meatus an d fluoroscopic imaging confirmed the coil of the stent proximally, remained above the very radiodense appearing stone. As a result, I passed a Sensor wire via the stent and it did coil within the putat domenica collecting system. Over the Sensor wire, I removed the stent leaving the wire in place and passe d a dual-lumen catheter into the mid distal ureter. I then performed a retrograde pyelogram, confirm ing the appropriate entry in ureteral location and consistent with high-grade ongoing obstruction due to the stone. I contrasted into the collecting system, confirming the appropriate location of the w zachariah. I thus removed the dual-lumen catheter, after passing a [employer] guidewire via the second lumen of the dual-lumen catheter and coiling it alongside the indwelling Sensor wire. I then performed dir ect vision flexible ureteroscopy, given the high location of the stone at the UPJ and begin laser lit hotripsy, fragmenting the stone. I was able to fragment the stone partially, but given the significa nt tortuosity of the ureter at that location and respiratory variation ongoing, I then removed the fl exible ureteroscope and instead utilized the semi-rigid ureteroscope which was able to be navigated a ll the way to the point of the stone in the proximal ureter. There, I was able to completely fragmen t the stone out of its impacted location there with several stone fragments delivered distally in the ureter and some that went into the collecting system. I thus passed a Bentson guidewire via the richard i-rigid ureteroscope back into the collecting system and removed the semi-rigid ureteroscope. I then passed the flexible ureteroscope over the Bentson guidewire again this time into the collecting syst em and the upper pole. There, I continued fragmentation of some of the partially fragmented stones, until the dust fragments were smaller than 1 mm in diameter and approximately the size of the 200 nm laser fiber tip. I surveyed each of the calyces and fragmented an additional calculus present within the mid pole posterior calyx. This calculus was only about 1 to 2 mm in diameter. I surveyed each of the calyces again for confirmation that no significant sized stone fragments were present, and onc e this was done, I backed the scope into the proximal, down into the mid and distal ureter. A couple of additional fragments were noted that were approximately 1 to 2 mm in size; so after removing the flexible ureteroscope, I again passed the semi-rigid ureteroscope into the mid distal ureter where th ose stone fragments were encountered and again used the laser fiber to fragment those to the size of the tip of the laser fiber or less than 1 mm in size. I surveyed the entirety of the ureter, and whi letha the ureter was markedly tortuous, there was no evidence of ureteral injury, and everything was int act. As a result, I then back-loaded the cystoscope over the indwelling safety wire and passed a 6-F rench by 24 cm double-J ureteral stent with ease into the collecting system with a coil observed fluo roscopically there and 1 cystoscopically formed within the bladder. Her bladder was then decompresse d of fluid and urine, and some stone dust was collected from within the bladder and sent for chemical analysis. The patient was then taken out of the lithotomy position, awakened from general anesthesi a, transferred to a stretcher, and then transferred to the recovery room in good condition. Complications: None. Discharge Disposition: She will be discharged with 5 days of a second generation cephalosporin as we ll as [place] for pain. Subsequent followup should be established in 2 to 3 weeks for a cystoscopy and left ureteral stents extraction. SPRING/KARIN Voice ID: [id number] Report ID: [id number]
== END 2022-03-22 10:05 | disposition home or self-care (01) ==
LOC: OR 06:25
PROVIDERS: ATTEND Urology
PROC: 0TF78ZZ Fragmentation in Left Ureter, Via Natural or Artificial Opening Endoscopic (ICD-10-PCS; 2022-03-22)
PROC: 0T778DZ Dilation of Left Ureter with Intraluminal Device, Via Natural or Artificial Opening Endoscopic (ICD-10-PCS; 2022-03-22)
PROC: 0TF48ZZ Fragmentation in Left Kidney Pelvis, Via Natural or Artificial Opening Endoscopic (ICD-10-PCS; principal; 2022-03-22 07:30)
DX: N20.1 Calculus of ureter (principal)
CPT/HCPCS: 87088; 87086; 36415; 85610; 82947 ×2; 88300; 82360; 74450; 51610; 52356; J2704; J1580; J3010; J1100; J7030; J2405; J0290